=== PATIENT | male | born 1995 | race Two or more races ===

== ENCOUNTER 2020-03-08 20:00 | Emergency (ER) | payer MEDICAID, OTHER ==
[~2020-03-08] VITALS: Ht 172.7 cm; Wt 93.0 kg
[2020-03-08 21:06] VITALS: BP 144/90
== END 2020-03-08 22:29 | disposition home or self-care (01) ==
LOC: ER 20:00
DX: N48.89 Other specified disorders of penis (principal); D17.30 Benign lipomatous neoplasm of skin and subcutaneous tissue of unspecified sites

== ENCOUNTER 2025-09-28 14:13 | Emergency (ER) | payer MEDICAID ==
[~2025-09-28] VITALS: Ht 172.7 cm; Wt 112.0 kg
[2025-09-28 14:15] VITALS: TEMP 98.3
--- NOTE | 2025-09-28 16:03 | ED.PDOC ---
SOB-HPI HPI Comments 30 y/o M, with PMHx of asthma presents to the ED for CC of shortness of breath. Patient states, he has been experiencing symptoms of shortness of breath x1week. Patient reports, shortness of breath to worsen while lying down. Patient further relays, recently being Dx with the flu. Patient comments, on running of of his Albuterol inhaler and needing a refill on his prescription. Patient denies chest pain, palpitations, cough, nasal congestion, or sore-throat. No other symptoms or modifying factors are present at this time. Chief Complaint: Shortness of Breath Time Seen by MD: 15:55 Reviewed notes: Nurses Notes, Medications, Allergies Information Source: Patient Mode of Arrival: Ambulatory Severity: Moderate Timing: Weeks Duration: Since onset PE Risk Factors: None History of: Asthma Prehospital treatment: None Modifying Factors: Nothing Associated Signs and Symptoms: None Past Medical History PAST MEDICAL HISTORY: Asthma Surgical History: Denies all surgeries Family History Family History: Reviewed,noncontributory to illness, No family hx of Cancer, No family hx of DM, No family hx of Heart ewelina, No family hx of HTN, No family hx ofKidney ewelina, No family hx of Liver ewelina, No family hx of Lung ewelina, No family hx of Stroke Social History Smoker: Non-Smoker Alcohol: Denies ETOH Use Drugs: Denies Drug Use Lives In: Home Constitutional: denies: chills, diaphoresis, fatigue, fever, malaise, sweats, weakness, others EENTM: denies: blurred vision, double vision, ear bleeding, ear discharge, ear drainage, ear pain, ear ringing, eye pain, eye redness, hearing loss, mouth pain, mouth swelling, nasal discharge, nose bleeding, nose congestion, nose pain, photophobia, tearing, throat pain, throat swelling, voice changes, others Respiratory: reports: shortness of breath; denies: cough, hemoptysis, orthopnea, SOB at rest, SOB with excertion, stridor, wheezing, others Cardiovascular: denies: chest pain, dizzy spells, diaphoresis, Dyspnea on exertion, edema, irregular heart beat, left arm pain, lightheadedness, palpitations, PND, syncope, others Gastrointestinal: denies: abdomen distended, abdominal pain, blood streaked bowels, constipated, diarrhea, dysphagia, difficulty swallowing, hematemesis, melena, nausea, poor appetite, poor fluid intake, rectal bleeding, rectal pain, vomiting, others Genitourinary: denies: burning, dysuria, flank pain, frequency, hematuria, incontinence, penile discharge, penile sore, pain, testicle pain, testicle swelling, urgency, others Neurological: denies: dizziness, fainting, headache, left sided numbness, left sided weakness, numbness, paresthesia, pre-existing deficit, right sided num bness, right sided weakness, seizure, speech problems, tingling, tremors, weakness, others Musculoskeletal: denies: back pain, gout, joint pain, joint swelling, muscle pain, muscle stiffness, neck pain, others Integumetry: denies: bruises, change in color, change in hair/nails, dryness, laceration, lesions, lumps, rash, wounds, others Allergic/Immunocompromised: denies: Difficulty Healing, Frequent Infections, Hives, Itching, others Hematologic/Lymphatic: denies: anemia, blood clots, easy bleeding, easy bruising, swollen glands, others Endocrine: denies: excessive hunger, excessive sweating, excessive thirst, excessive urination, flushing, intolerance to cold, intolerance to heat, unexplained weight gain, unexplained weight loss, others Psychiatric: denies: anxiety, bipolar disorder, depression, hopeless, panic disorder, schizophrenia, sleepless, suicidal, others All Other Systems: Reviewed and Negative Physical Exam General Appearance: No Apparent Distress, Normal HEENT: Normal ENT Inspection, Pharynx Normal Neck: Full Range of Motion, Non-Tender, Normal, Normal Inspection Respiratory: Chest Non-Tender, Lungs Clear, No Accessory Muscle Use, No Respiratory Distress, Normal Breath Sounds Cardiovascular: No Edema, No Murmur, No Gallop, Normal Peripheral Pulses, Regular Rate/Rhythm Breast Exam: Deferred Gastrointestinal: No Organomegaly, Non Tender, No Pulsatile Mass, Normal Bowel Sounds, Soft Genitalia: Deferred Pelvic: Deferred Rectal: Deferred Extremities: No calf tenderness, Normal capillary refill, Normal inspection, Normal range of motion, Non-tender, No pedal edema Musculoskeletal : Apperance: Normal Neurologic: Alert, land law examiner II-XII nml as Tested, No Motor Deficits, Normal Affect, Normal Mood, No Sensory Deficits Cerebellar Function: Normal Reflexes: Normal Skin: Dry, Normal Color, Warm Lymphatic: No Adenopathy Was a procedure done? Was a procedure done?: No Differential Dx Differential Diagnosis: Pneumonia, Sinusitis, Pharyngitis, URI, Other (influenza) X-Ray, Labs, Meds, VS Vital Signs Date Time Temp Pulse Resp B/P (MAP) Pulse Ox O2 Delivery O2 Flow Rate FiO2 09/28/25 17:50 91 18 141/89 (106) 99 09/28/25 14:30 98 09/28/25 14:15 98.3 97 15 146/101 95 98.3 Lab Test 09/28/25 17:58 09/28/25 16:23 Range/Units Troponin I High Sensitivity Pending 3 L </=54 ng/L White Blood Count 11.3 H 4.4-10.8 10^3/uL Red Blood Count 5.18 4.5-5.90 10^6/uL Hemoglobin 15.4 13.5-17.5 g/dL Hematocrit 45.9 41.0-53.0 % Mean Corpuscular Volume 88.6 80.0-100.0 fL Mean Corpuscular Hemoglobin 29.8 28.0-32.0 pg Mean Corpuscular Hemoglobin Concent 33.6 32.0-36.0 g/dL Red Cell Distribution Width 14.5 H 11.8-14.3 % Platelet Count 324 140-450 10^3/uL Mean Platelet Volume 8.1 6.9-10.8 fL Neutrophils (%) (Auto) 59.8 37.0-80.0 % Lymphocytes (%) (Auto) 27.7 10.0-50.0 % Monocytes (%) (Auto) 7.8 0.0-12.0 % Eosinophils (%) (Auto) 3.6 0.0-7.0 % Basophils (%) (Auto) 1.1 0.0-2.0 % Neutrophils # (Auto) 6.8 1.6-8.6 10 ^3/uL Lymphocytes # (Auto) 3.1 0.4-5.4 10 ^3/uL Monocytes # (Auto) 0.9 0-1.3 10 ^3/uL Eosinophils # (Auto) 0.4 0-0.8 10 ^3/uL Basophils # (Auto) 0.1 0-0.2 10 ^3/uL Nucleated Red Blood Cells 0.0 % Sodium Level 143 136-145 mmol/L Potassium Level 3.9 3.5-5.1 mmol/L Chloride Level 106 98-107 mmol/L Carbon Dioxide Level 28 20-31 mmol/L Anion Gap 9 5-15 Blood Urea Nitrogen 12 9-23 mg/dL Creatinine 0.87 0.700-1.30 mg/dL Glomerular Filtration Rate Calc 121 >90 mL/min BUN/Creatinine Ratio 13.8 10.0-20.0 Serum Glucose 102 74-106 mg/dL Calcium Level 9.3 8.7-10.4 mg/dL [facility] [id number] [place] [address] Ph: [phone] DIAGNOSTIC IMAGING Diagnostic Imaging Report : [id number] Signed PATIENT: ESTUARDO KHAN ACCT: [id number] UNIT: [id number] : 1995 LOC: ER ROOM / BED: / AGE / SEX: 30 / M ADM STATUS: REG ER SERVICE 15 ORDERING PHYSICIAN: RUFINO BRISCOE MD PROCEDURE(s): CXRP - CHEST PORTABLE REASON: sob ORDER NUMBER(s): [id number], ACCESSION NUMBER(s): [id number] EXAM: XY CHEST PORTABLE HISTORY: sob TECHNIQUE: 1 view of the chest COMPARISON: None FINDINGS/IMPRESSION: LUNGS: No pleural effusion, consolidation, or pneumothorax. Peribronchial thickening, which is nonspecific however may represent infectious versus inflammatory bronchitis. MEDIASTINUM: Unremarkable. BONES: No acute osseous abnormality. OTHER: None. ATED BY: LIAM BARGER MD DICTATED DATE/TIME: 09/28/251700 SIGNED BY: ILAM BARGER MD SIGNED DATE/TIME: 09/28/251700 CC: Time of 1ST Reevaluation: 16:25 Reevaluation 1ST: Unchanged Patient Education/Counseling: Diagnosis, Treatment Family Education/Counseling: No Family Present SEPSIS Sepsis Screen Date sepsis recognized/suspect: Sep 28, 2025 Time Sepsis recognized/suspect: 1417 Recent Procedure: No On Antibiotic Therapy: No Respiratory Rate >20: No Heart Rate >90: No Temp<36 C (96.8 F) or >38.3 C: No SBP <90 or MAP <65 mmHG: No New Acute Mental Status Change: No Is the patient on CPAP, BIPAP,: No Physician Orders Electrocardigram (09/28/25 14:24) Urinalysis (09/28/25 16:16) Chest Portable (09/28/25 16:16) Troponin-I Hs (09/28/25 17:16) Troponin-I Hs (09/28/25 19:16) Albuterol Medneb (Ventolin Medneb) (09/28/25 18:15) Ipratropium Medneb (Atrovent Medneb) (09/28/25 18:15) Dexamethasone Injection (Decadron Inject (09/28/25 18:15) Vital Signs Date Time Temp Pulse Resp B/P (MAP) Pulse Ox O2 Delivery O2 Flow Rate FiO2 09/28/25 17:50 91 18 141/89 (106) 99 09/28/25 14:30 98 09/28/25 14:15 98.3 97 15 146/101 95 98.3 Laboratory Tests Test 09/28/25 16:23 White Blood Count 11.3 10^3/uL (4.4-10.8) H Departure 1 Departure Time of Disposition: 18:16 (Patient likely with a bronchitis. We will discharge patient home with outpatient follow up) Impression: Primary Impression: Acute bronchitis Disposition: 01 HOME / SELF CARE / HOMELESS Condition: Stable Additional Instructions: You likely have a viral illness. It is important to stay well rested and well hydrated. You can take Tylenol and Motrin as needed for pain and fever. For a sore throat you can drink warm tea with honey. You can take [id number] pseudoephedrine for nasal congestion. You were prescribed an inhaler and steroids. Please take as directed He should follow up with your regular doctor within 1 week to ensure you are doing better. If your symptoms worsen or you have any other concerns please return to the emergency room. e-Prescriptions Albuterol Sulfate (VENTOLIN MDI) 90 Mcg Ih 90 MCG IN QID PRN for 7 Days, #1 INH Prov: RUFINO BRISCOE MD 09/28/25 Prednisone (Prednisone) 20 Mg Tab 40 MG PO DAILY for 5 Days, #10 MG Prov: RUFINO BRISCOE MD 12/7/25 Discharged With: Self Critical Care Note Critical Care Time?: No Stability Stability form required: No Heart Score Heart Score: Heart Score Response (Comments) Value History N/A 0 EKG N/A 0 Age N/A 0 Risk Factors N/A 0 Troponin N/A 0 Total 0 I personally scribed for RUFINO BRISCOE MD ([email or web address]) on 09/28/25 at 16:03. Electronically submitted by Alma Barone ([email or web address]). I personally scribed for URFINO BRISCOE MD ([email or web address]) on 09/28/25 at 16:22. Electronically submitted by Alma Barone ([email or web address]). I personally scribed for RUFINO BRISCOE MD ([email or web address]) on 09/28/25 at 17:52. Electronically submitted by Alma Barone ([email or web address]). RUFINO BRISCOE MD Sep 28, 2025 16:03
[2025-09-28 16:31] LABS: Hematocrit 45.9 % (41.0-53.0); Hemoglobin 15.4 g/dL (13.5-17.5); Mean Corpuscular Hemoglobin 29.8 pg (28.0-32.0); Mean Corpuscular Volume 88.6 fL (80.0-100.0); Nucleated Red Blood Cells % 0.0 %
[2025-09-28 16:41] LABS: Chloride 106 mmol/L (98-107); Potassium 3.9 mmol/L (3.5-5.1); Sodium 143 mmol/L (136-145)
[2025-09-28 16:42] LABS: Anion Gap 9 (5-15); Calcium 9.3 mg/dL (8.7-10.4); Carbon Dioxide 28 mmol/L (20-31)
[2025-09-28 16:47] LABS: BUN/Creatinine Ratio 13.8 (10.0-20.0); Blood Urea Nitrogen 12 mg/dL (9-23); Glucose 102 mg/dL (74-106)
--- NOTE | 2025-09-28 17:03 | DVH ---
EXAM: XY CHEST PORTABLE HISTORY: sob TECHNIQUE: 1 view of the chest COMPARISON: None FINDINGS/IMPRESSION: LUNGS: No pleural effusion, consolidation, or pneumothorax. Peribronchial thickening, which is nonspecific however may represent infectious versus inflammatory bronchitis. MEDIASTINUM: Unremarkable. BONES: No acute osseous abnormality. OTHER: None.
[2025-09-28 17:50] VITALS: BP 141/89
[2025-09-28 18:00] VITALS: PULSE 18; RESP 18; O2SAT 99
[2025-09-28] MEDS ORDERED: PRED20TA2 PO (18:19)
[2025-09-28] MEDS ORDERED: ALBUAER3 IN (18:19)
[2025-09-28 18:33] VITALS: RESP 20; O2SAT 99
[2025-09-28] MEDS: IPRATROPIUM BROM 0.5 MG/2.5ML INH SOL NEB ONE (18:33)
[2025-09-28] MEDS: ALBUTEROL SULF 2.5 MG/0.5ML(0.5%) NEB SOLN NEB ONE (18:33)
--- NOTE | 2025-09-30 06:36 | ECG ---
[facility] Test Date: 2025-09-28 Test Time: 14:30:34 Pat Name: ESTUARDO KHAN Department: ED Room: Gender: M Bag Loader: SHREYAS : 1995 Requested By: RUFINO BRISCOE Order Number: [id number] Reading MD: Mahad Berman Measurements Intervals [place] Rate: 98 P: 42 KS: 143 QRS: 76 QRSD: 99 T: 10 QT: 356 QTc: 455 Interpretive Statements Sinus rhythm Minimal ST depression, diffuse leads Baseline wander in lead(s) II,aVR,aVF,V5 Electronically Signed On 10-02-2025 19:13:42 PST by Mahad Berman Please click the below link to view image of tracing.
== END 2025-09-28 19:00 | disposition home or self-care (01) ==
LOC: ER 14:13
DX: J20.9 Acute bronchitis, unspecified (principal); J45.909 Unspecified asthma, uncomplicated; Z79.899 Other long term (current) drug therapy
CPT/HCPCS: 36415; 71045; 80048; 84484; 85025; 93005; 94640; 99285; J1100